=== PATIENT | female | born 1955 | race Caucasian/White ===

== ENCOUNTER 2019-12-03 02:44 | Inpatient (IN) | payer BC, MEDICARE ==
[~2019-12-03] VITALS: Ht 167.6 cm; Wt 63.6 kg
[2019-12-03] MEDS ORDERED: LORazepam 2 mg/ml vial IV ONE ×2 (03:30→05:25)
[2019-12-03] MEDS ORDERED: normal saline 1000ml 1,000 ML IV ONE (03:30)
[2019-12-03] MEDS ORDERED: ondansetron/PF 4mg/2ml inj IV ONE (03:30)
--- NOTE | 2019-12-03 03:33 | NUR ---
PT FRIEND LUPIS (RIDE OARK) CELL NUMBER: [phone]. PER PT, OKAY TO GIVE INFORMATION TO
[2019-12-03 03:36] LABS: BASOPHILS # (AUTO) 0.1 X10'3 (0-0.2); BASOPHILS % (AUTO) 0.6 % (0-1); EOSINOPHILS % (AUTO) 0.1 % (0-6); HEMATOCRIT 52.8 % (35.0-45.0); HEMOGLOBIN 17.4 g/dl (12.0-16.0); LYMPHOCYTES # (AUTO) 1.4 X10'3 (1.1-4.8); LYMPHOCYTES % (AUTO) 11.3 % (21-51); MEAN CORPUSCULAR HEMOGLOBIN 28.9 PG (27.0-31.0); MEAN CORPUSCULAR VOLUME 87.5 FL (78-98); MEAN PLATELET VOLUME 7.4 FL (7.4-10.4); MONOCYTES % (AUTO) 7.7 % (2-12); NEUTROPHILS # (AUTO) 10.1 X10'3 (1.8-7.7); NEUTROPHILS % (AUTO) 80.3 % (42-75); PLATELET COUNT 337 X10'3 (140-440); RED BLOOD COUNT 6.04 X10'6 (4.20-5.60); RED CELL DISTRIBUTION WIDTH 14.1 % (11.5-14.5); WHITE BLOOD COUNT 12.6 X10'3 (4.5-11.0)
[2019-12-03 03:53] LABS: ALANINE AMINOTRANSFERASE 86 U/L (12-78); ALBUMIN 3.9 G/DL (3.4-5.0); ALKALINE PHOSPHATASE 80 IU/L (46-116); ANION GAP 12 (8-16); ASPARTATE AMINO TRANSFERASE 94 U/L (10-37); BILIRUBIN,TOTAL 0.9 MG/DL (0.1-1.0); BLOOD UREA NITROGEN 16 MG/DL (7-18); BUN/CREATININE RATIO 12.5 (6.6-38.0); CALCIUM 10.1 MG/DL (8.5-10.1); CHLORIDE 96 MMOL/L (99-107); CREATININE 1.28 MG/DL (0.40-0.90); GLUCOSE 107 MG/DL (70-104); POTASSIUM 3.8 MMOL/L (3.5-5.1); SODIUM 133 MMOL/L (135-145); TOTAL CARBON DIOXIDE 25.3 MMOL/L (24-32); eGFR 42 ML/MIN
[2019-12-03 03:56] LABS: ETHANOL < 0.010 GM/DL (0.0-0.010); LIPASE 295 U/L (73-393); TROPONIN I 0.22 NG/ML (0.0-0.05)
[2019-12-03 04:07] LABS: CLARITY,URINE CLEAR (Clear); COLOR,URINE YELLOW (Yellow); GLUCOSE, URINE NEGATIVE (Neg); KETONES,URINE >=80 mg/dl (Neg); LEUKOCYTE ESTERASE ,URINE SMALL (Neg); NITRITES, URINE NEGATIVE (Neg); OCCULT BLOOD,URINE SMALL (Neg); PROTEIN,URINE 100 mg/dl (Neg); UROBILINOGEN,URINE 0.2 E.U/dL (0.2-1.0)
[2019-12-03 04:08] LABS: UA COLLECTION TYPE OTHER
[2019-12-03 04:13] LABS: BACTERIA,URINE 2+ /HPF (Neg); RBC,URINE 0-2 /HPF (0-2); SQUAMOUS EPITHELIAL CELL,UR FEW /LPF (FEW)
[2019-12-03] MEDS ORDERED: aspirin 325mg tablet PO ONE (04:15)
[2019-12-03] MEDS ORDERED: heparin 10,000 units/1 ML INJ IV ONE ×2 (04:15→04:25)
[2019-12-03 04:20] LABS: URINE AMPHETAMINE SCREEN NEGATIVE (Neg); URINE BARBITUATE SCREEN NEGATIVE (Neg); URINE BENZODIAZEPINES SCREEN NEGATIVE (Neg); URINE CANNABINOID SCREEN NEGATIVE (Neg); URINE COCAINE SCREEN NEGATIVE (Neg); URINE METHADONE SCREEN NEGATIVE (Neg); URINE OPIATE SCREEN NEGATIVE (Neg); URINE PHENCYCLIDINE SCREEN NEGATIVE (Neg)
[2019-12-03] MEDS ORDERED: heparin 25,000 UNIT/250ml bag 250 ML IV SCH (04:24)
[2019-12-03] MEDS ORDERED: acetaminophen 325mg tablet PO PRN (04:25)
[2019-12-03] MEDS ORDERED: HYDROcodone/acetaminophen 5mg/325mg tablet PO PRN (04:25)
[2019-12-03] MEDS ORDERED: potassium CL 10mEq/100ml bag 100 ML IV PRN ×2 (04:25)
[2019-12-03] MEDS ORDERED: mag hydrox/Alum hydrox/simeth 30ml oral suspension PO PRN (04:25)
[2019-12-03] MEDS ORDERED: magnesium 2GM in 50ml NS 50 ML IV PRN (04:25)
[2019-12-03] MEDS ORDERED: heparin 10,000 units/1 ML INJ IV PRN (04:25)
[2019-12-03] MEDS ORDERED: magnesium 4gm in 100ml NS 100 ML IV PRN (04:25)
[2019-12-03] MEDS ORDERED: potassium Cl 20 mEq SR tablet PO PRN ×2 (04:25)
[2019-12-03] MEDS ORDERED: magnesium hydroxide 30ml (MOM) UD suspension PO PRN (04:25)
[2019-12-03] MEDS ORDERED: ondansetron/PF 4mg/2ml inj IV PRN (04:25)
[2019-12-03] MEDS ORDERED: magnesium Cl slow-release 64mg tablet PO PRN (04:25)
[2019-12-03] MEDS: heparin 25,000 UNIT/250ml bag 250 ML IV SCH ×3 (04:53→18:00)
[2019-12-03 04:54] LABS: PARTIAL THROMBOPLASTIN TIME 29 SECONDS (22-32)
--- NOTE | 2019-12-03 05:22 | NUR ---
per lab dept, pt covid-19 test is negative. Staff aware.
[2019-12-03] MEDS: normal saline 1000ml 1,000 ML IV SCH ×3 (05:32→21:29)
--- NOTE | 2019-12-03 05:38 | NUR ---
spoke with angelo regarding brandy being admitted.
[2019-12-03] MEDS ORDERED: TRAM50TA2 PO (05:45)
[2019-12-03] MEDS ORDERED: ROPI3TAB PO (05:45)
[2019-12-03] MEDS ORDERED: aminophylline 250mg/10ml inj. IV PRN ×2 (06:00→13:25)
[2019-12-03] MEDS ORDERED: regadenoson 0.4mg/5ml syringe IV ONE (06:00)
[2019-12-03] MEDS ORDERED: nitroGLYCERIN 0.4mg SUBLingual tab SL PRN ×2 (06:00→13:25)
[2019-12-03] MEDS ORDERED: metoprolol tartrate 1mg/ml inj IV PRN ×2 (06:00→13:25)
--- NOTE | 2019-12-03 07:23 | NUR ---
Patient in room ED 12. I have received report from FELI Todd and had the opportunity to ask questions and assume patient care.
--- NOTE | 2019-12-03 07:50 | NUR ---
Pt arrived to unit from ER. Pt tucked in by Resource RN. Oriented pt to room and call light. Tele monitor placed.
[2019-12-03] MEDS: K and/or MAG REPLACEMENT MC SCH ×2 (08:23→20:00)
[2019-12-03] MEDS: docusate sod 100mg capsule PO SCH ×2 (08:57→21:20)
--- NOTE | 2019-12-03 09:22 | NUR ---
PAGER ID: [phone] MESSAGE: [id number]: Haley Mckeon - Apologize for not picking up phone, may the pt receive another anti-emetic? -Mera [phone]
[2019-12-03] MEDS: proCHLORperazine 10 MG/2 ml inj IV PRN ×2 (09:54→17:06)
[2019-12-03] MEDS: CefTRIAXone/D5W-Rocephin 1gm 50 ML IV SCH (10:30)
[2019-12-03 11:00] VITALS: BP 133/78
[2019-12-03] MEDS: heparin 10,000 units/1 ML INJ IV PRN ×2 (12:46→21:11)
[2019-12-03] MEDS ORDERED: regadenoson 0.4mg/5ml syringe IV PRN (13:25)
[2019-12-03 15:00] VITALS: BP 128/95
[2019-12-03] MEDS ORDERED: ANAS1TAB10 PO (16:03)
[2019-12-03] MEDS ORDERED: GABA600T13 PO (16:03)
[2019-12-03] MEDS ORDERED: BUPR300T86 PO (16:03)
--- NOTE | 2019-12-03 16:06 | NUR ---
PAGER ID: [phone] MESSAGE: [id number]: Haley Blancasvidhya ARREAGA PTT is 100. Will stop for 120mins. -Mera/Danny [phone]
[2019-12-03] MEDS ORDERED: traMADol 50MG tablet PO PRN (17:00)
--- NOTE | 2019-12-03 18:24 | NUR ---
Patient in room PCU 3015. I have received report from FELI Merchant and had the opportunity to ask questions and assume patient care.
[2019-12-03 19:00] VITALS: BP 137/94
[2019-12-03] MEDS ORDERED: ROPINIRole 1mg tablet PO SCH (21:00)
[2019-12-03] MEDS ORDERED: gabapentin 300mg capsule PO SCH (21:00)
[2019-12-03] MEDS: buPROPion SR 150mg tablet PO SCH (21:17)
[2019-12-03] MEDS: lactobacillus rhamnosus 10,000 MMU CELLS/CAPSULE PO SCH (21:20)
[2019-12-03 23:00] VITALS: BP 121/95
[2019-12-04] VITALS (11 sets, daily range): BP systolic 81–121; BP diastolic 53–83
[2019-12-04 04:25] LABS: BASOPHILS # (AUTO) 0.1 X10'3 (0-0.2); MEAN PLATELET VOLUME 8.2 FL (7.4-10.4); MONOCYTES # (AUTO) 0.8 X10'3 (0-0.9)
[2019-12-04 04:27] LABS: BASOPHILS % (AUTO) 1.1 % (0-1); EOSINOPHILS % (AUTO) 0.4 % (0-6); HEMATOCRIT 49.3 % (35.0-45.0); LYMPHOCYTES # (AUTO) 2.2 X10'3 (1.1-4.8); LYMPHOCYTES % (AUTO) 27.2 % (21-51); MEAN CORPUSCULAR HEMOGLOBIN 28.6 PG (27.0-31.0); MEAN CORPUSCULAR HGB CONC 32.4 g/dL (33.0-36.5); MEAN CORPUSCULAR VOLUME 88.4 FL (78-98); MONOCYTES % (AUTO) 9.8 % (2-12); NEUTROPHILS # (AUTO) 4.9 X10'3 (1.8-7.7); NEUTROPHILS % (AUTO) 61.5 % (42-75); PLATELET COUNT 191 X10'3 (140-440); RED BLOOD COUNT 5.58 X10'6 (4.20-5.60); RED CELL DISTRIBUTION WIDTH 14.4 % (11.5-14.5); WHITE BLOOD COUNT 7.9 X10'3 (4.5-11.0)
[2019-12-04 04:37] LABS: ALANINE AMINOTRANSFERASE 67 U/L (12-78); ALBUMIN 2.9 G/DL (3.4-5.0); ALBUMIN/GLOBULIN RATIO 0.9 (1.1-1.5); ALKALINE PHOSPHATASE 61 IU/L (46-116); ANION GAP 9 (8-16); ASPARTATE AMINO TRANSFERASE 62 U/L (10-37); BILIRUBIN,TOTAL 0.6 MG/DL (0.1-1.0); BLOOD UREA NITROGEN 16 MG/DL (7-18); CALCIUM 8.9 MG/DL (8.5-10.1); CHLORIDE 105 MMOL/L (99-107); CREATININE 1.23 MG/DL (0.40-0.90); GLUCOSE 82 MG/DL (70-104); MAGNESIUM 1.9 MG/DL (1.5-2.4); POTASSIUM 3.8 MMOL/L (3.5-5.1); SODIUM 140 MMOL/L (135-145); TOTAL CARBON DIOXIDE 25.7 MMOL/L (24-32); TOTAL PROTEIN 6.3 G/DL (6.4-8.2); eGFR 44 ML/MIN
[2019-12-04] MEDS: heparin 10,000 units/1 ML INJ IV PRN (05:21)
--- NOTE | 2019-12-04 06:53 | NUR ---
Patient in room PCU 3015. I have received report from FELI Merchant and had the opportunity to ask questions and assume patient care.
[2019-12-04] MEDS: lactobacillus rhamnosus 10,000 MMU CELLS/CAPSULE PO SCH (07:42)
[2019-12-04] MEDS: CefTRIAXone/D5W-Rocephin 1gm 50 ML IV SCH (07:42)
[2019-12-04] MEDS: docusate sod 100mg capsule PO SCH (07:42)
[2019-12-04] MEDS: normal saline 1000ml 1,000 ML IV SCH (07:43)
[2019-12-04] MEDS: buPROPion SR 150mg tablet PO SCH (07:43)
[2019-12-04] MEDS: K and/or MAG REPLACEMENT MC SCH (07:52)
[2019-12-04] MEDS ORDERED: anastrozole 1 MG tablet PO SCH (08:00)
--- NOTE | 2019-12-04 12:39 | NUR ---
PAGER ID: [phone] MESSAGE: [id number]: Haley Linda - Sujata scan neg for conclusive evidence of fixed/reversible perfusion abnormalities. EF 75%. May pt eat? -Mera/Lynda [phone]
--- NOTE | 2019-12-04 13:21 | NUR ---
PAGER ID: [phone] MESSAGE: [id number]: Haley Mckeon: PTT critical of 101. Will resume in 2hrs -Mera [phone]
--- NOTE | 2019-12-04 13:37 | NUR ---
New orders from Trell to discontinue heparin gtt
[2019-12-04] MEDS ORDERED: ATOR20TA PO (13:58)
[2019-12-04] MEDS ORDERED: ASPI81TA52 PO (13:58)
[2019-12-04] MEDS ORDERED: LEVO500T89 PO (13:58)
[2019-12-04] MEDS ORDERED: ONDA4TAB6 PO (13:58)
[2019-12-04] MEDS ORDERED: CARV3.12 PO (13:58)
--- NOTE | 2019-12-04 15:43 | NUR ---
Pt stable for transfer per MD orders. Provided discharge instructions and education and answered any questions/concerns regarding discharge. Medications sent to [facility] on [address] Removed tele. Removed PIV, cannula intact. Belongings sent with pt. Pt walked down to lobby awaiting cab with aide.
== END 2019-12-04 15:50 | disposition home or self-care (01) | DRG 71 ==
LOC: EDSEX 02:45 → ER 02:45 → ED HOLD 04:24 → PCU 3S 07:54
PROVIDERS: ADMIT Family Medicine; ATTEND Family Medicine
PROC: 4A02XM4 Measurement of Cardiac Total Activity, External Approach (ICD-10-PCS; principal; 2019-12-04)
PROC: 3E073KZ Introduction of Other Diagnostic Substance into Coronary Artery, Percutaneous Approach (ICD-10-PCS; 2019-12-04)
DX: G93.41 Metabolic encephalopathy (principal); N17.9 Acute kidney failure, unspecified; N39.0 Urinary tract infection, site not specified; Z20.828 Contact with and (suspected) exposure to other viral communicable diseases; R79.89 Other specified abnormal findings of blood chemistry; Z85.3 Personal history of malignant neoplasm of breast; Z90.10 Acquired absence of unspecified breast and nipple; Z79.899 Other long term (current) drug therapy
CPT/HCPCS: 36415; 70450; 71045; 76937; 78451; 80053; 80305; 80320; 81001; 82140; 82948; 83690; 83735; 84484; 85025; 85610; 85730; 87088; 87635; 93005; 93017; 93306; 97116; 97161; 99285; A9500; G0378; J0696; J0780; J1644; J2060; J2405; J2785; J7030

== ENCOUNTER 2020-05-27 15:19 | Emergency (ER) | payer BC, MEDICARE ==
[~2020-05-27] VITALS: Ht 167.6 cm; Wt 60.0 kg
[~2020-05-27 15:19] MED LIST: ANAS1TAB10 PO; ATOR20TA PO; BUPR300T86 PO; CARV3.12 PO; GABA600T13 PO; ONDA4TAB6 PO; ROPI3TAB PO; TRAM50TA2 PO
[2020-05-27] MEDS ORDERED: normal saline 1000ml 1,000 ML IV ONE (15:50)
[2020-05-27 16:33] LABS: HEMATOCRIT 48.5 % (35.0-45.0); HEMOGLOBIN 16.2 g/dl (12.0-16.0); MEAN CORPUSCULAR HEMOGLOBIN 28.5 PG (27.0-31.0)
[2020-05-27 16:35] LABS: BASOPHILS # (AUTO) 0.1 X10'3 (0-0.2); BASOPHILS % (AUTO) 0.7 % (0-1); EOSINOPHILS % (AUTO) 0.4 % (0-6); LYMPHOCYTES # (AUTO) 1.2 X10'3 (1.1-4.8); LYMPHOCYTES % (AUTO) 12.4 % (21-51); MEAN CORPUSCULAR HGB CONC 33.4 g/dL (33.0-36.5); MEAN CORPUSCULAR VOLUME 85.3 FL (78-98); MONOCYTES # (AUTO) 0.5 X10'3 (0-0.9); MONOCYTES % (AUTO) 5.6 % (2-12); NEUTROPHILS # (AUTO) 7.6 X10'3 (1.8-7.7); NEUTROPHILS % (AUTO) 80.9 % (42-75); PLATELET COUNT 269 X10'3 (140-440); RED BLOOD COUNT 5.69 X10'6 (4.20-5.60); RED CELL DISTRIBUTION WIDTH 15.8 % (11.5-14.5); WHITE BLOOD COUNT 9.4 X10'3 (4.5-11.0)
[2020-05-27] MEDS ORDERED: pantoprazole 40 MG vial IV ONE (16:35)
[2020-05-27] MEDS ORDERED: ondansetron/PF 4mg/2ml inj IV ONE (16:35)
[2020-05-27] MEDS ORDERED: acetaminophen 325mg tablet PO ONE (16:35)
[2020-05-27 16:46] LABS: ALANINE AMINOTRANSFERASE 31 U/L (12-78); ALBUMIN 4.2 G/DL (3.4-5.0); ALBUMIN/GLOBULIN RATIO 1.1 (1.1-1.5); ALKALINE PHOSPHATASE 85 IU/L (46-116); ANION GAP 13 (8-16); ASPARTATE AMINO TRANSFERASE 44 U/L (10-37); BLOOD UREA NITROGEN 23 MG/DL (7-18); BUN/CREATININE RATIO 15.6 (6.6-38.0); CALCIUM 10.1 MG/DL (8.5-10.1); CHLORIDE 96 MMOL/L (99-107); CREATININE 1.47 MG/DL (0.40-0.90); GLUCOSE 126 MG/DL (70-104); POTASSIUM 3.8 MMOL/L (3.5-5.1); SODIUM 136 MMOL/L (135-145); TOTAL PROTEIN 8.1 G/DL (6.4-8.2); eGFR 36 ML/MIN
[2020-05-27] MEDS ORDERED: aspirin 325mg tablet PO ONE (17:40)
[2020-05-27 20:09] VITALS: BP 154/111
[2020-05-27 20:21] LABS: CLARITY,URINE CLEAR (Clear); COLOR,URINE YELLOW (Yellow); GLUCOSE, URINE NEGATIVE (Neg); KETONES,URINE 15 mg/dl (Neg); LEUKOCYTE ESTERASE ,URINE TRACE (Neg); NITRITES, URINE NEGATIVE (Neg); OCCULT BLOOD,URINE TRACE-LYSED (Neg); PROTEIN,URINE NEGATIVE (Neg); UA COLLECTION TYPE CLN CATCH MIDSTREAM; UROBILINOGEN,URINE 0.2 E.U/dL (0.2-1.0)
[2020-05-27 20:35] LABS: RBC,URINE 0-2 /HPF (0-2)
[2020-05-27 20:36] LABS: BACTERIA,URINE FEW /HPF (Neg); MUCUS STRANDS NONE SEEN /LPF (Neg); SQUAMOUS EPITHELIAL CELL,UR FEW /LPF (FEW)
[2020-05-27] MEDS ORDERED: ONDA4TAB6 PO (20:44)
== END 2020-05-27 21:37 | disposition home or self-care (01) ==
LOC: ER 15:21
DX: B34.9 Viral infection, unspecified (principal); R11.10 Vomiting, unspecified; R51.9 Headache, unspecified; R11.0 Nausea; R53.83 Other fatigue; Z85.3 Personal history of malignant neoplasm of breast; Z98.890 Other specified postprocedural states; Z79.899 Other long term (current) drug therapy
CPT/HCPCS: 36415; 71045; 80053; 81001; 83605; 83880; 84484; 85025; 87088; 87502; 87503; 93005; 96361; 96374; 96375; 99285; C9113; J2405; J7030